=== PATIENT | male | born 1940 | race African-American/Black ===

== ENCOUNTER 2016-07-04 16:26 | Inpatient (IN) | payer MEDICARE ==
[~2016-07-04] VITALS: Ht 162.6 cm; Wt 67.6 kg
[~2016-07-04 16:26] MED LIST: ASPI-110 PO; ATOR10TA15 PO; BRIN1SUS2 EACH EYE; CARV25TA PO; CHOL100025 CHEW; GLIM2TAB PO; HYDR25TA5 PO; LISI-515 PO; POTA-243 PO; PRED1SUS LEFT EYE; TIMO0.5S30 EACH EYE
[2016-07-04 16:59] VITALS: BP 139/78; PULSE 97; RESP 18; TEMP 100.1; O2SAT 96
[2016-07-04 17:08] VITALS: O2SAT 96
--- NOTE | 2016-07-04 17:13 | PD ---
HPI Chief Complaint: General Weakness Time Seen by Provider: 17:08 Travel History International Travel<30 days: No Contact w/Intl Traveler<30days: No Traveled to known affect area: No History of Present Illness HPI Patient comes in complaining of bilateral lower extremity weakness ongoing for 2 years. Patient reports it has been getting worse over the past several days. Patient reports 2 days ago felt his legs gave out on him causing him to fall straight down. He denies hitting his head or loss of consciousness. Patient denies any fevers, abdominal pain, nausea, vomiting, loss of bowel or bladder, numbness, chest pain, shortness of breath, headache, upper extremity weakness, IV drug use, back pain, neck pain, or doing anything for this. Patient denies anything making it better or worse. Patient reports associated intermittent tingling bilateral lower extremities around his knees. Patient has history of CVA, hyperlipidemia, glaucoma, hypertension, and diabetes. PFSH Past Medical History Diabetes: Yes Hypertension: Yes Past Surgical History Eye Surgery: Yes (CATARACT) Social History Alcohol Use: Yes (OCC) Tobacco Use: No Substance Use: No Allergies-Medications (Allergen,Severity, Reaction): Coded Allergies: No Known Allergies (Unverified , 03/03/16) Reported Meds & Prescriptions Reported Meds & Active Scripts Active Reported Vitamin D3 (Cholecalciferol) 1,000 Unit Chew 1,000 Units CHEW DAILY Glimepiride 2 Mg Tab 2 Mg PO DAILY Take with breakfast or first main meal Aspirin 81 (Aspirin) 81 Mg Tabdr 81 Mg PO DAILY Carvedilol 25 Mg Tab 25 Mg PO BID Hydrochlorothiazide 25 Mg Tab 25 Mg PO DAILY Atorvastatin (Atorvastatin Calcium) 10 Mg Tab 10 Mg PO HS Lisinopril 20 Mg Tab 20 Mg PO DAILY Klor-Con 10 (Potassium Chloride) 10 Meq Tab 10 Meq PO DAILY Pred Forte Opth Drops (Prednisolone Acetate Opth Drops) 1% Susp 1 Drop LEFT EYE DAILY Simbrinza Opth Drops (Brinzolamide-Brimonidine Opth Drops) 1-0.2% Susp 1 Drop EACH EYE BID Timolol Opth Drops 0.5 % Soln 1 Drop EACH EYE BID Review of Systems Except as stated in HPI: all other systems reviewed are Neg Physical Exam Narrative GENERAL: Well-developed, overly nourished, in no acute distress, and non-ill appearing. SKIN: Focused skin assessment warm and dry. Previous surgical scar noted over cervical spine. HEAD: Atraumatic. Normocephalic. EYES: Pupils equal and round. EOMI. No scleral icterus. No injection or drainage. ENT: No nasal bleeding or discharge. Mucous membranes pink and moist. NECK: Trachea midline. Supple. No nuclear rigidity. CARDIOVASCULAR: Regular rate and rhythm. No murmur appreciated. RESPIRATORY: No accessory muscle use. No respiratory distress. Clear to auscultation. Breath sounds equal bilaterally. GASTROINTESTINAL: Abdomen soft, non-tender, nondistended. Hepatic and splenic margins not palpable. Normal bowel sounds 4. No pulsatile mass. MUSCULOSKELETAL: No obvious deformities. No clubbing. No cyanosis. No edema. Full range of motion. Hip: FROM and equal BL with passive and active flexion, extension, Abduction, Adduction, and internal/external rotation. Pulses equal BL distal. Capillary refill less than 2 seconds distal and equal BL. FROM distal and equal BL. Strength distal 5 out of 5 and equal BL. NV intact distal and equal BL. Plantar flexion and dorsal flexion equal BL. Dorsal pulses equal BL. Sensation equal BL 1st web space. NEUROLOGICAL: Awake and alert. No obvious cranial nerve deficits. Motor grossly within normal limits. Normal speech. PSYCHIATRIC: Appropriate mood and affect; insight and judgment normal. Data Data Last Documented VS Vital Signs Date Time Temp Pulse Resp B/P Pulse Ox O2 Delivery O2 Flow Rate FiO2 07/04/16 17:08 96 Room Air 07/04/16 16:59 100.1 97 18 139/78 Orders Complete Blood Count With Diff (07/04/16 17:03) Comprehensive Metabolic Panel (07/04/16 17:03) Prothrombin Time / Inr (Pt) (07/04/16 17:03) Act Partial Throm Time (Ptt) (07/04/16 17:03) Urinalysis - C+S If Indicated (07/04/16 17:03) Iv Access Insert/Monitor (07/04/16 17:03) Ecg Monitoring (07/04/16 17:03) Oximetry (07/04/16 17:03) Sodium Chloride 0.9% Flush (Ns Flush) (07/04/16 17:15) Ct Brain W/O Iv Contrast(Rout) (07/04/16 ) Spine, Lumbar - Ltd (Ap & Lat) (07/04/16 ) Chest, Single Ap (07/04/16 ) Lactic Acid (07/04/16 18:06) Urine Culture (07/04/16 17:22) Blood Culture (07/04/16 18:32) Sodium Chlor 0.9% 1000 Ml Inj (Ns 1000 M (07/04/16 18:32) Ceftriaxone Inj (Rocephin Inj) (07/04/16 18:45) Azithromycin Inj (Zithromax Inj) (07/04/16 18:45) Acetaminophen (Tylenol) (07/04/16 18:45) Admit Order (Ed Use Only) (07/04/16 19:22) Labs Laboratory Tests Test 07/04/16 07/04/16 07/04/16 07/04/16 17:03 17:10 17:22 18:18 Prothrombin Time 11.8 SEC Prothromb Time International 1.1 RATIO Ratio Activated Partial 31.4 SEC Thromboplast Time White Blood Count 18.2 TH/MM3 Red Blood Count 4.46 MIL/MM3 Hemoglobin 12.0 GM/DL Hematocrit 35.0 % Mean Corpuscular Volume 78.5 FL Mean Corpuscular Hemoglobin 27.0 PG Mean Corpuscular Hemoglobin 34.5 % Concent Red Cell Distribution Width 14.7 % Platelet Count 162 TH/MM3 Mean Platelet Volume 9.3 FL Neutrophils (%) (Auto) 82.1 % Lymphocytes (%) (Auto) 9.4 % Monocytes (%) (Auto) 8.1 % Eosinophils (%) (Auto) 0.1 % Basophils (%) (Auto) 0.3 % Neutrophils # (Auto) 15.0 TH/MM3 Lymphocytes # (Auto) 1.7 TH/MM3 Monocytes # (Auto) 1.5 TH/MM3 Eosinophils # (Auto) 0.0 TH/MM3 Basophils # (Auto) 0.0 TH/MM3 CBC Comment DIFF FINAL Differential Comment Sodium Level 138 MEQ/L Potassium Level 3.9 MEQ/L Chloride Level 101 MEQ/L Carbon Dioxide Level 28.3 MEQ/L Anion Gap 9 MEQ/L Blood Urea Nitrogen 16 MG/DL Creatinine 1.20 MG/DL Estimat Glomerular Filtration 71 ML/MIN Rate Random Glucose 124 MG/DL Calcium Level 9.5 MG/DL Total Bilirubin 0.9 MG/DL Aspartate Amino Transf 126 U/L (AST/SGOT) Alanine Aminotransferase 49 U/L (ALT/SGPT) Alkaline Phosphatase 65 U/L Total Protein 7.8 GM/DL Albumin 3.3 GM/DL Urine Color YELLOW Urine Turbidity HAZY Urine pH 6.0 Urine Specific [place] 1.024 Urine Protein 100 mg/dL Urine Glucose (UA) NEG mg/dL Urine Ketones 10 mg/dL Urine Occult Blood MOD Urine Nitrite NEG Urine Bilirubin NEG Urine Urobilinogen LESS THAN 2.0 MG/DL Urine Leukocyte Esterase LARGE Urine RBC 10 /hpf Urine WBC /hpf Urine WBC Clumps FEW Urine Squamous Epithelial <1 /hpf Cells Urine Bacteria RARE /hpf Urine Hyaline Casts 2 /lpf Urine Mucus FEW /lpf Microscopic Urinalysis Comment CULTURE INDICATED Lactic Acid Level 1.7 mmol/L MDM Medical Decision Making Medical Screen Exam Complete: Yes Emergency Medical Condition: Yes Interpretation(s) Lumbar spine x-ray shows: Degenerative changes. No fracture or subluxation of the lumbar spine. Head CT read by the radiologist shows: No acute intracranial abnormality demonstrated. Old white matter changes and an old right basal ganglia lacunar infarct again seen. Chest x-ray read by radiologist shows: Left base pneumonia. Differential Diagnosis Electrolyte abnormality, UTI, pneumonia, CVA, anemia, other Narrative Course Patient seen and examined. Initial laboratory and radiological studies were obtained and reviewed. Patient was given IV fluids, IV Rocephin, IV Zithromax, and Tylenol. Discussed patient with Dr. Sanchez, who is in agreement with plan of care and disposition. Discussed all findings and plan of care with patient, who is agreeable for admission. All questions were answered. Patient remained stable throughout ED course. Sepsis Criteria SIRS Criteria (2 or more): Heart rate over 90, WBC > 88653, < 4000 or > 10% bands Sepsis Criteria (SIRS+source): Infect source susp/known Physician Communication Physician Communication [address] Underwood, who is agreeable to admit the patient. Diagnosis Primary Impression: Sepsis Qualified Code: A41.9 - Sepsis, due to unspecified organism Additional Impressions: Pneumonia Qualified Code: J18.1 - Pneumonia of left lower lobe due to infectious organism UTI (urinary tract infection) Qualified Code: N39.0 - Urinary tract infection with hematuria, site unspecified Admitting Information Admitting Physician Requests: Admit Condition: Stable Nestor Baer July 04, 2016 17:13
[2016-07-04] MEDS ORDERED: SODIUM CHLORIDE 0.9% FLUSH 10 ML FLUSH IV FLUSH PRN ×2 (17:15→20:15)
[2016-07-04 17:32] LABS: BASOPHIL % 0.3 % (0.0-2.0); EOSINOPHIL % 0.1 % (0.0-4.0); HEMO FLAGS DIFF FINAL; LYMPH % 9.4 % (9.0-44.0); LYMPHOCYTE # 1.7 TH/MM3 (1.0-4.8); MEAN CELL VOLUME 78.5 FL (80.0-100.0); MEAN CORPUSCULAR HGB CONC 34.5 % (32.0-36.0); MONO % 8.1 % (0.0-8.0); NEUT % 82.1 % (16.0-70.0); PLATELET COUNT 162 TH/MM3 (150-450); RED BLOOD COUNT 4.46 MIL/MM3 (4.50-5.90); RED CELL DISTRIBUTION WIDTH 14.7 % (11.6-17.2); WHITE BLOOD COUNT 18.2 TH/MM3 (4.0-11.0)
[2016-07-04 17:39] LABS: APTT (PATIENT) 31.4 SEC (24.3-30.1); INTERNATIONAL NORMALIZED RATIO 1.1 RATIO; PROTHROMBIN TIME - PATIENT 11.8 SEC (9.8-11.6)
--- NOTE | 2016-07-04 17:53 | RADRPT ---
EXAM DATE/TIME: 07/04/2016 17:28 [facility] COMPARISON: No previous studies available for comparison. INDICATIONS : Back pain, fell MEDICAL HISTORY : None. SURGICAL HISTORY : None. ENCOUNTER: Initial ACUITY: 1 day PAIN SCORE: 8/10 LOCATION: Lumbar spine FINDINGS: No fracture or subluxation demonstrated of the lumbar spine. Vertebral bodies have normal height. There is lateral osseous ridging at essentially all levels. There is also some anterior osseous ridgi ng, especially L1/L2, L4/L5 and L5/S1. Minimal disc space narrowing. Mild to moderate bilateral facet osteoarthritis seen at L4/L5 and L5/S1. CONCLUSION: Degenerative changes as above. No fracture or subluxation of the lumbar spine. Joe Cerna MD on July 04, 2016 at 17:50 Board Certified Radiologist. This report was verified electronically.
[2016-07-04 17:57] LABS: ALKALINE PHOSPHATASE 65 U/L (45-117); ALT (GPT) 49 U/L (12-78); ANION GAP 9 MEQ/L (5-15); AST (GOT) 126 U/L (15-37); BICARBONATE 28.3 MEQ/L (21.0-32.0); BLOOD UREA NITROGEN 16 MG/DL (7-18); CHLORIDE 101 MEQ/L (98-107); GLOMERULAR FILTRATION RATE 71 ML/MIN (>89); SODIUM (NA) 138 MEQ/L (136-145); TOTAL BILIRUBIN ADULT 0.9 MG/DL (0.2-1.0)
[2016-07-04 18:03] LABS: POTASSIUM 3.9 MEQ/L (3.5-5.1)
--- NOTE | 2016-07-04 18:12 | RADRPT ---
EXAM DATE/TIME: 07/04/2016 17:57 [facility] COMPARISON: CT BRAIN W/O CONTRAST, May 22, 2014, 10:58. INDICATIONS : Generalized weakness. RADIATION DOSE: 56.35 CTDIvol (mGy) MEDICAL HISTORY : Hypertension. SURGICAL HISTORY : spinal fusion. ENCOUNTER: Initial ACUITY: 1 day PAIN SCALE: 0/10 LOCATION: cranial TECHNIQUE: Multiple contiguous axial images were obtained of the head. Using automated exposure control and adj ustment of the mA and/or kV according to patient size, radiation dose was kept as low as reasonably a chievable to obtain optimal diagnostic quality images. FINDINGS: CEREBRUM: The ventricles are normal for age. No evidence of midline shift, mass lesion, hemorrhage or acute in farction. No extra-axial fluid collections are seen. There is chronic low-attenuation in the periven tricular white matter. Old right basal ganglia lacunar infarct again seen. POSTERIOR FOSSA: The cerebellum and brainstem are intact. The 4th ventricle is midline. The cerebellopontine angle i s unremarkable. EXTRACRANIAL: The visualized portion of the orbits is intact. SKULL: The calvaria is intact. No evidence of skull fracture. CONCLUSION: No acute intracranial abnormality demonstrated. Old white matter changes and an old right basal gangl ia lacunar infarct again seen. Joe Cerna MD on July 04, 2016 at 18:09 Board Certified Radiologist. This report was verified electronically.
[2016-07-04 18:27] LABS: BACTERIA, URINE RARE /hpf; BLOOD, URINE MOD (NEG); COMMENT (UR) CULTURE INDICATED; CULTURE IF INDICATED CULTURE INDICATED; GLUCOSE,URINE NEG (NEG); HYALINE CAST, URINE 2 /lpf (RARE); KETONE, URINE 10 mg/dL (NEG); MUCUS URINE FEW /lpf (OCC); NITRITE,URINE NEG (NEG); SQUAMOUS EPITHELIAL CELL URINE <1 /hpf (0-5); URINE COLOR YELLOW (YELLW/STRAW)
--- NOTE | 2016-07-04 18:27 | RADRPT ---
EXAM DATE/TIME: 07/04/2016 18:08 [facility] COMPARISON: CHEST SINGLE AP, May 22, 2014, 10:43. INDICATIONS : Fever MEDICAL HISTORY : None. SURGICAL HISTORY : None. ENCOUNTER: Initial ACUITY: 1 day PAIN SCORE: 0/10 LOCATION: Bilateral chest FINDINGS: Left hemidiaphragm is partially obscured compatible with a left base infiltrate. I believe it is main ly in the lower lobe. Right lung is clear. No pleural effusion or pneumothorax seen on either side. Heart size stable, upper limits of normal. Thoracic aorta and mediastinal vessels are mildly tortuous , unchanged. CONCLUSION: Left base pneumonia. Joe Cerna MD on July 04, 2016 at 18:25 Board Certified Radiologist. This report was verified electronically.
[2016-07-04] MEDS ORDERED: SODIUM CHLOR 0.9% 1000 ML INJ 1,000 ML IV SCH (18:32)
[2016-07-04] MEDS ORDERED: ACETAMINOPHEN 500 MG CPLT PO ONE (18:45)
[2016-07-04] MEDS ORDERED: AZITHROMYCIN INJ 500 MG in SODIUM CHLOR 0.9% 250 ML INJ 250 ML IV ONE (18:45)
[2016-07-04] MEDS ORDERED: cefTRIAXone INJ 1,000 MG in SODIUM CHLORIDE 0.9% INJ 100 ML IV ONE (18:45)
[2016-07-04 19:00] VITALS: BP 133/66; PULSE 75; RESP 17; O2SAT 98
--- NOTE | 2016-07-04 20:09 | HHI.HP ---
HPI Service [facility] Primary Care Physician Ai Moore MD Admission Diagnosis sepsis, pneumonia, UTI Diagnoses: (1) Sepsis (2) PNA (pneumonia) Diagnosis: Principal (3) UTI (urinary tract infection) Diagnosis: Principal (4) Generalized weakness Diagnosis: Principal (5) DM (diabetes mellitus) Diagnosis: Principal Travel History International Travel<30 Days: No Contact w/Intl Traveler <30 Da: No Traveled to Known Affected Are: No History of Present Illness This is a 76-year-old male with a PMH of HTN, Hyperlipidemia, CVA and DM who presented to the ER with complaints of generalized weakness x2 days. Reports fall 2 days ago due to weakness but no LOC or head trauma. Denies fever, chills , nausea, vomiting, chest pain or SOB. On arrival, BP 139/78, HR 97, O2 sat 96 % on RA, Temp 100.1. WBC 18.2. Chemistry at baseline. GFR 71. Lactic Acid 1.7. UA positive for UTI. CT Head with no acute findings, old right basal ganglia lacunar infarct. CXR with left base pneumonia. S/p Blood Cultures, Rocephin/Zithro in ER. Review of Systems Except as stated in HPI: all other systems reviewed are Neg ROS: 14 point review of systems otherwise negative. Past Family Social History Past Medical History PMH: HTN, Hyperlipidemia, CVA and DM Past Surgical History PAST SURGICAL HISTORY: Cataract Surgery Allergies: Coded Allergies: No Known Allergies (Unverified , 03/03/16) Family History PAST FAMILY HISTORY: Reviewed. No h/o DM or CAD Social History PAST SOCIAL HISTORY: Occasional alcohol. Negative for tobacco or drugs. Physical Exam Vital Signs Vital Signs Date Time Temp Pulse Resp B/P Pulse Ox O2 Delivery O2 Flow Rate FiO2 07/04/16 17:08 96 Room Air 07/04/16 17:06 96 Room Air 07/04/16 16:59 100.1 97 18 139/78 96 Physical Exam PE: GENERAL: Elderly male in no acute distress. HEENT: PERRLA, EOMI. No scleral icterus or conjunctival pallor. No lid lag or facial droop. CARDIOVASCULAR: Regular rate and rhythm. No obvious murmurs to auscultation. No chest tenderness to palpation. RESPIRATORY: No obvious rhonchi or wheezing. Clear to auscultation. Breath sounds equal bilaterally. GASTROINTESTINAL: Abdomen soft, non-tender, nondistended. BS normal. MUSCULOSKELETAL: Extremities without clubbing, cyanosis, or edema. No obvious deformities. NEUROLOGICAL: Awake, alert and oriented x4. No focal neurologic deficits. Moving both upper and lower extremities spontaneously. Laboratory Laboratory Tests Test 07/04/16 07/04/16 07/04/16 07/04/16 17:03 17:10 17:22 18:18 Prothrombin Time 11.8 Prothromb Time International 1.1 Ratio Activated Partial 31.4 Thromboplast Time White Blood Count 18.2 Red Blood Count 4.46 Hemoglobin 12.0 Hematocrit 35.0 Mean Corpuscular Volume 78.5 Mean Corpuscular Hemoglobin 27.0 Mean Corpuscular Hemoglobin 34.5 Concent Red Cell Distribution Width 14.7 Platelet Count 162 Mean Platelet Volume 9.3 Neutrophils (%) (Auto) 82.1 Lymphocytes (%) (Auto) 9.4 Monocytes (%) (Auto) 8.1 Eosinophils (%) (Auto) 0.1 Basophils (%) (Auto) 0.3 Neutrophils # (Auto) 15.0 Lymphocytes # (Auto) 1.7 Monocytes # (Auto) 1.5 Eosinophils # (Auto) 0.0 Basophils # (Auto) 0.0 CBC Comment DIFF FINAL Differential Comment Sodium Level 138 Potassium Level 3.9 Chloride Level 101 Carbon Dioxide Level 28.3 Anion Gap 9 Blood Urea Nitrogen 16 Creatinine 1.20 Estimat Glomerular Filtration 71 Rate Random Glucose 124 Calcium Level 9.5 Total Bilirubin 0.9 Aspartate Amino Transf 126 (AST/SGOT) Alanine Aminotransferase 49 (ALT/SGPT) Alkaline Phosphatase 65 Total Protein 7.8 Albumin 3.3 Urine Color YELLOW Urine Turbidity HAZY Urine pH 6.0 Urine Specific [place] 1.024 Urine Protein 100 Urine Glucose (UA) NEG Urine Ketones 10 Urine Occult Blood MOD Urine Nitrite NEG Urine Bilirubin NEG Urine Urobilinogen LESS THAN 2.0 Urine Leukocyte Esterase LARGE Urine RBC 10 Urine WBC Urine WBC Clumps FEW Urine Squamous Epithelial <1 Cells Urine Bacteria RARE Urine Hyaline Casts 2 Urine Mucus FEW Microscopic Urinalysis Comment CULTURE INDICATED Lactic Acid Level 1.7 Date/Time Procedure Status Source Growth 07/04/16 18:30 Aerobic Blood Culture Received Blood Peripheral Pending 07/04/16 18:30 Anaerobic Blood Culture Received Blood Peripheral Pending 07/04/16 17:22 Urine Culture Received Urine Clean Catch Pending Result Diagram: 07/04/16 1710 07/04/16 1710 Assessment and Plan Problem List: (1) Sepsis ICD Code: A41.9 Status: Acute (2) PNA (pneumonia) ICD Code: J18.9 Status: Acute (3) UTI (urinary tract infection) ICD Code: N39.0 Status: Acute (4) Generalized weakness ICD Code: R53.1 Status: Acute (5) DM (diabetes mellitus) ICD Code: E11.9 Status: Acute Assessment and Plan A/P: 1. Sepsis: Temp 100.1, WBC 18, Source-UTI/PNA. S/p Blood/Urine cultures, Rocephin/Zithro in ER. Follow up cultures, continue IV Abx. IVF for hydration. 2. PNA: CXR w/ LLL PNA, images reviewed by me. Denies symptoms at this time. Continue w/ IV Abx as above, DuoNeb prn, Mucinex bid. 3. UTI: U/a w/ UTI. IV Abx, IVF for hydration. 4. Generalized Weakness: Acute on Chronic. Multifactorial-combination of physical deconditioning and acute infection/sepsis. Consult PT for eval/tx. 5. DM: Sliding scale w/ Accu-Cheks, check Hgb A1c. 6. DVT Prophylaxis: SCD/Teds. 7. Social work for d/c planning as needed. 8. Case discussed w/ ER physician at length. Physician Certification 2 Midnight Certification Type: Admission for Inpatient Services Order for Inpatient Services The services are ordered in accordance with Medicare regulations or non- Medicare payer requirements, as applicable. In the case of services not specified as inpatient-only, they are appropriately provided as inpatient services in accordance with the 2-midnight benchmark. Estimated LOS (days): 2 days is the estimated time the patient will need to remain in the hospital, assuming treatment plan goals are met and no additional complications. Post-Hospital Plan: Not yet determined Problem Qualifiers (1) Sepsis: Qualified Code: A41.9 - Sepsis, due to unspecified organism (2) UTI (urinary tract infection): Qualified Code: N39.0 - Urinary tract infection with hematuria, site unspecified Pat Underwood MD July 04, 2016 20:09
[2016-07-04] MEDS ORDERED: ONDANSETRON HCL 4 MG/2 ML VIAL IVP PRN (20:15)
[2016-07-04] MEDS ORDERED: GLUCAGON 1 MG/ML VIAL OTHER PRN (20:15)
[2016-07-04] MEDS ORDERED: DEXTROSE 50% IN WATER 50 ML VIAL(D50) IV PRN (20:15)
[2016-07-04] MEDS ORDERED: ACETAMINOPHEN/HYDROcodone 325 MG/5 MG TAB PO PRN (20:15)
[2016-07-04] MEDS ORDERED: RESP: ALBUTEROL 2.5 MG/IPRATROPIUM 0.5 MG NEB (PRN) NEB (20:15)
[2016-07-04] MEDS ORDERED: BISACODYL 10 MG SUPP RECTAL PRN (20:15)
[2016-07-04] MEDS ORDERED: MORPHINE SULFATE 4 MG/ML INJ IV PRN (20:15)
[2016-07-04 21:00] VITALS: BP 129/61; PULSE 81; RESP 16; O2SAT 97
[2016-07-04] MEDS ORDERED: [UNRECOGNIZED DRUG - OTHER] EACH EYE SCH (21:00)
[2016-07-04] MEDS: SODIUM CHLORIDE 0.9% FLUSH 10 ML FLUSH IV FLUSH SCH (21:00)
[2016-07-04] MEDS: INSULIN ASPART SUPPLEMENTAL SCALE SQ SCH (21:00)
[2016-07-04] MEDS: SODIUM CHLOR 0.9% 1000 ML INJ 1,000 ML IV SCH (21:17)
[2016-07-04] MEDS: ATORVASTATIN 10 MG TAB PO SCH (21:19)
[2016-07-04] MEDS: CARVEDILOL 12.5 MG TAB PO SCH (21:19)
[2016-07-04 21:34] VITALS: TEMP 98.9
[2016-07-04] MEDS: TIMOLOL MALEATE 0.5% OPHT SOLN 5 ML BTL EACH EYE SCH (22:06)
[2016-07-04 23:00] VITALS: PULSE 95
[2016-07-04] MEDS: ACETAMINOPHEN 325 MG TAB PO PRN (23:13)
[2016-07-05] VITALS (9 sets, daily range): BP systolic 112–177; BP diastolic 56–86; PULSE 69–101; RESP 16–18; TEMP 97.8–102.1; O2SAT 92–98
[2016-07-05] MEDS: ACETAMINOPHEN 325 MG TAB PO PRN ×2 (05:53→16:11)
[2016-07-05] MEDS: SODIUM CHLOR 0.9% 1000 ML INJ 1,000 ML IV SCH ×2 (05:53→16:14)
[2016-07-05] MEDS: INSULIN ASPART SUPPLEMENTAL SCALE SQ SCH ×4 (05:54→20:46)
[2016-07-05 07:54] LABS: AUTOMATED NEUTROPHIL # 11.1 TH/MM3 (1.8-7.7); BASOPHIL % 0.2 % (0.0-2.0); EOSINOPHIL % 0.2 % (0.0-4.0); HEMATOCRIT 31.5 % (39.0-51.0); HEMO FLAGS DIFF FINAL; LYMPHOCYTE # 1.3 TH/MM3 (1.0-4.8); MEAN CELL VOLUME 78.7 FL (80.0-100.0); MEAN CORPUSCULAR HEMOGLOBIN 26.9 PG (27.0-34.0); MEAN CORPUSCULAR HGB CONC 34.3 % (32.0-36.0); MONO % 6.9 % (0.0-8.0); NEUT % 82.7 % (16.0-70.0); PLATELET COUNT 143 TH/MM3 (150-450); RED BLOOD COUNT 4.01 MIL/MM3 (4.50-5.90); RED CELL DISTRIBUTION WIDTH 14.2 % (11.6-17.2); WHITE BLOOD COUNT 13.4 TH/MM3 (4.0-11.0)
[2016-07-05 08:13] LABS: ALT (GPT) 36 U/L (12-78); ANION GAP 8 MEQ/L (5-15); AST (GOT) 77 U/L (15-37); BICARBONATE 26.6 MEQ/L (21.0-32.0); BLOOD UREA NITROGEN 16 MG/DL (7-18); CHLORIDE 105 MEQ/L (98-107); GLOMERULAR FILTRATION RATE 94 ML/MIN (>89); POTASSIUM 3.3 MEQ/L (3.5-5.1); SODIUM (NA) 140 MEQ/L (136-145)
[2016-07-05] MEDS: TIMOLOL MALEATE 0.5% OPHT SOLN 5 ML BTL EACH EYE SCH ×2 (08:18→20:46)
[2016-07-05] MEDS: guaiFENesin E.R. 600 MG TAB PO SCH ×2 (08:18→20:38)
[2016-07-05] MEDS: CARVEDILOL 12.5 MG TAB PO SCH ×2 (08:18→20:38)
[2016-07-05] MEDS: ASPIRIN EC 81 MG TABEC PO SCH (08:18)
[2016-07-05] MEDS: prednisoLONE ACETATE 1% OPHT SUSP 5 ML BTL LEFT EYE SCH (08:18)
[2016-07-05] MEDS: SODIUM CHLORIDE 0.9% FLUSH 10 ML FLUSH IV FLUSH SCH ×2 (08:19→20:43)
[2016-07-05 08:22] LABS: ALKALINE PHOSPHATASE 55 U/L (45-117); TOTAL BILIRUBIN ADULT 0.7 MG/DL (0.2-1.0)
[2016-07-05] MEDS ORDERED: PNEUMOCOCCAL POLYVALENT INJ 25 MCG/0.5 ML SYR IM ONE (10:00)
[2016-07-05] MEDS ORDERED: INFLUENZA VIRUS VACCINE (QUADRIVALENT) 0.5 ML SYR IM ONE (10:00)
[2016-07-05] MEDS ORDERED: POTASSIUM CHLORIDE 10 MEQ CONTROLLED RELEASE TAB PO ONE (10:30)
--- NOTE | 2016-07-05 10:33 | HHI.PR ---
Subjective Remarks in no acute distress. had a fever earlier today. denies pain or productive cough. Objective Vitals Vital Signs Date Time Temp Pulse Resp B/P Pulse Ox O2 Delivery O2 Flow Rate FiO2 07/05/16 08:00 98.2 77 18 121/65 97 07/05/16 04:00 100.4 84 17 112/56 96 07/05/16 00:00 100.7 101 18 126/70 92 07/04/16 23:00 95 07/04/16 21:34 98.9 07/04/16 21:00 81 16 129/61 97 07/04/16 19:00 75 17 133/66 98 07/04/16 17:08 96 Room Air 07/04/16 17:06 96 Room Air 07/04/16 16:59 100.1 97 18 139/78 96 I/O 07/04/16 07/04/16 07/04/16 07/05/16 07/05/16 07/05/16 07:00 15:00 23:00 07:00 15:00 23:00 Intake Total 1269 ml Output Total 650 ml Balance 619 ml Intake Oral 240 ml IV Total 1029 ml Output Urine Total 650 ml Result Diagram: 07/05/16 0650 07/05/16 0650 Imaging Last Impressions Lumbar Spine X-Ray 07/04/16 0000 Signed Impressions: Service Date/Time: Monday, July 04, 2016 17:28 - CONCLUSION: Degenerative changes as above. No fracture or subluxation of the lumbar spine. Joe Cerna MD Head CT 07/04/16 0000 Signed Impressions: Service Date/Time: Monday, July 04, 2016 17:57 - CONCLUSION: No acute intracranial abnormality demonstrated. Old white matter changes and an old right basal ganglia lacunar infarct again seen. Joe Cerna MD Chest X-Ray 07/04/16 0000 Signed Impressions: Service Date/Time: Monday, July 04, 2016 18:08 - CONCLUSION: Left base pneumonia. Joe Cerna MD Objective Remarks GENERAL: This is a well-nourished, well-developed patient, in no apparent distress. CARDIOVASCULAR: Regular rate and regular rhythm without murmurs, gallops, or rubs. RESPIRATORY: Clear to auscultation. Breath sounds equal bilaterally. No wheezes , rales, or rhonchi. GASTROINTESTINAL: Abdomen soft, non-tender, nondistended. Normal, active bowel sounds MUSCULOSKELETAL: Extremities without clubbing, cyanosis, or edema. NEURO: Alert & Oriented x4 to person, place, time, situation. Moves all ext x4 Procedures none Medications and IVs Current Medications Sodium Chloride 2 ml 2 ml UNSCH PRN IV FLUSH FLUSH AFTER USING IV ACCESS; Start 07/04/16 at 17:15; Stop 07/04/16 at 20:27; Status DC Sodium Chloride 1,000 ml @ 100 mls/hr Q10H IV Last administered on 07/04/16 18:32; Start 07/04/16 at 18:32; Stop 07/04/16 at 20:52; Status DC Ceftriaxone Sodium 1000 mg/ Sodium Chloride 100 ml @ 200 mls/hr ONCE ONCE IV Last administered on 07/04/16 18:45; Start 07/04/16 at 18:45; Stop 07/04/16 at 19:14; Status DC Azithromycin/ Sodium Chloride (Zithromax Inj/ NS 250 ml Inj) 250 ml @ 250 mls/ hr ONCE ONCE IV Last administered on 07/04/16 20:05; Start 07/04/16 at 18:45 ; Stop 07/04/16 at 19:44; Status DC Acetaminophen (Tylenol) 500 mg ONCE ONCE PO Last administered on 07/04/16 18: 45; Start 07/04/16 at 18:45; Stop 07/04/16 at 18:46; Status DC Dextrose (D50w (Vial) Inj) 50 ml UNSCH PRN IV HYPOGLYCEMIA-SEE COMMENTS; Start 07/04/16 at 20:15 Glucagon (Glucagon Inj) 1 mg UNSCH PRN OTHER HYPOGLYCEMIA-SEE COMMENTS; Start 07/04/16 at 20:15 Insulin Aspart 1 1 ACHS SLIDING SCALE SQ ; Start 07/04/16 at 21:00 Ceftriaxone Sodium 1000 mg/ Sodium Chloride 100 ml @ 200 mls/hr Q24H IV ; Start 07/05/16 at 21:00 Azithromycin/ Sodium Chloride (Zithromax Inj/ NS 250 ml Inj) 250 ml @ 250 mls/ hr Q24H IV ; Start 07/05/16 at 21:00 Albuterol/ Ipratropium 1 ampule 1 ampule Q4HR NEB PRN NEB SOB/WHEEZING; Start 07/04/16 at 20:15 Sodium Chloride (NS 1000 ml Inj) 1,000 ml @ 100 mls/hr Q10H IV Last administered on 07/05/16 05:53; Start 07/04/16 at 21:00 Sodium Chloride (NS Flush) 2 ml UNSCH PRN IV FLUSH FLUSH AFTER USING IV ACCESS ; Start 07/04/16 at 20:15 Sodium Chloride (NS Flush) 2 ml BID IV FLUSH ; Start 07/04/16 at 21:00 Ondansetron HCl (Zofran Inj) 4 mg Q6H PRN IVP NAUSEA OR VOMITING; Start at 20:15 Bisacodyl (Dulcolax Supp) 10 mg DAILY PRN RECTAL CONSTIPATION; Start 07/04/16 at 20:15 Acetaminophen (Tylenol) 650 mg Q6H PRN PO FEVER/PAIN SCALE 1 TO 2 Last administered on 07/05/16 05:53; Start 07/04/16 at 20:15 Acetaminophen/ Hydrocodone Bitart ([place] 5-325 Mg) 1 tab Q4H PRN PO PAIN SCALE 3 TO 5; Start 07/04/16 at 20:15 Morphine Sulfate (Morphine Inj) 2 mg Q3H PRN IV Pain 6-10; Start 07/04/16 at 20 :15 Atorvastatin Calcium (Lipitor) 10 mg HS PO Last administered on 07/04/16 21:19 ; Start 07/04/16 at 21:00 Carvedilol (Coreg) 25 mg BID PO Last administered on 07/05/16 08:18; Start at 21:00 Prednisolone Acetate (Pred Forte 1% Opth Susp) 1 drop DAILY LEFT EYE Last administered on 07/05/16 08:18; Start 07/05/16 at 09:00 Timolol Maleate (Timoptic 0.5% Opth Soln) 1 drop BID EACH EYE Last administered on 07/05/16 08:18; Start 07/04/16 at 21:00 Aspirin (Ecotrin Ec) 81 mg DAILY PO Last administered on 07/05/16 08:18; Start 07/05/16 at 09:00 Patient Own Medication PT OWN MED: SIMBRINZA (BRINZOLAM... BID EACH EYE ; Start 5/21/17 at 21:00; Status Hold Pneumococcal Polyvalent Vaccine (Pneumovax-23 Inj) 25 mcg ONCE ONCE IM ; Start 07/05/16 at 10:00; Stop 07/05/16 at 10:01; Status DC Influenza Virus Vaccine (Flu (Quadrivalent) Vaccine Inj) 0.5 ml ONCE ONCE IM ; Start 07/05/16 at 10:00; Stop 07/05/16 at 10:01; Status DC Guaifenesin (Mucinex Er) 600 mg BID PO Last administered on 07/05/16t 08:18; Start 07/05/16 at 09:00 A/P Assessment and Plan A/P 1. Sepsis; Source-UTI/PNA. follow the Blood/Urine cultures, continue IV antibiotics. 2. Generalized Weakness: Acute on Chronic. Multifactorial-combination of physical deconditioning and acute infection/sepsis. Consulted PT for eval/tx. 3. DM: Sliding scale w/ Accu-Cheks. 4.hypertension; controlled- continue coreg- will monitor and adjust the regimen as needed. 5.mild hypokalemia; will replace. 6. DVT Prophylaxis: SCD/Teds. Lien Francis MD July 05, 2016 10:33
[2016-07-05] MEDS ORDERED: IBUPROFEN 200 MG TAB PO PRN (17:15)
[2016-07-05] MEDS: ATORVASTATIN 10 MG TAB PO SCH (20:38)
[2016-07-05] MEDS: cefTRIAXone INJ 1,000 MG in SODIUM CHLORIDE 0.9% INJ 100 ML IV SCH (20:39)
[2016-07-05] MEDS: AZITHROMYCIN INJ 500 MG in SODIUM CHLOR 0.9% 250 ML INJ 250 ML IV SCH (21:40)
[2016-07-06] VITALS (8 sets, daily range): BP systolic 132–200; BP diastolic 62–93; PULSE 69–112; RESP 16–20; TEMP 96.6–100.1; O2SAT 93–98
[2016-07-06] MEDS: SODIUM CHLOR 0.9% 1000 ML INJ 1,000 ML IV SCH ×3 (01:26→23:00)
[2016-07-06] MEDS: INSULIN ASPART SUPPLEMENTAL SCALE SQ SCH ×4 (05:49→21:00)
[2016-07-06] MEDS: CARVEDILOL 12.5 MG TAB PO SCH ×2 (08:12→22:08)
[2016-07-06] MEDS: ASPIRIN EC 81 MG TABEC PO SCH (08:12)
[2016-07-06] MEDS: guaiFENesin E.R. 600 MG TAB PO SCH ×2 (08:12→22:08)
[2016-07-06] MEDS: prednisoLONE ACETATE 1% OPHT SUSP 5 ML BTL LEFT EYE SCH (08:15)
[2016-07-06] MEDS: TIMOLOL MALEATE 0.5% OPHT SOLN 5 ML BTL EACH EYE SCH ×2 (08:15→22:07)
[2016-07-06] MEDS: SODIUM CHLORIDE 0.9% FLUSH 10 ML FLUSH IV FLUSH SCH ×2 (08:16→22:09)
--- NOTE | 2016-07-06 09:11 | HHI.PR ---
Subjective Remarks feeling better today. no sob.Tmax 102.1. no fever this morning. Objective Vitals Vital Signs Date Time Temp Pulse Resp B/P Pulse Ox O2 Delivery O2 Flow Rate FiO2 07/06/16 08:24 79 07/06/16 08:00 98.2 80 18 183/86 98 07/06/16 04:30 98.8 73 18 157/70 97 07/06/16 00:00 97.3 69 16 132/62 98 07/05/16 21:00 97.8 72 16 126/63 97 07/05/16 20:00 69 07/05/16 17:46 100.4 07/05/16 16:00 102.1 86 18 177/86 98 07/05/16 12:00 99.4 75 17 133/66 96 I/O 07/05/16 07/05/16 07/05/16 07/06/16 07/06/16 07/06/16 07:00 15:00 23:00 07:00 15:00 23:00 Intake Total 1269 ml 480 ml 480 ml 2148 ml Output Total 650 ml 250 ml 375 ml Balance 619 ml 230 ml 480 ml 1773 ml Intake Oral 240 ml 480 ml 480 ml 120 ml IV Total 1029 ml 2028 ml Output Urine Total 650 ml 250 ml 375 ml # Voids 5 3 # Bowel Movements 1 Result Diagram: 07/05/16 0650 07/05/16 0650 Imaging Last Impressions Lumbar Spine X-Ray 07/04/16 0000 Signed Impressions: Service Date/Time: Monday, July 04, 2016 17:28 - CONCLUSION: Degenerative changes as above. No fracture or subluxation of the lumbar spine. Joe Cerna MD Head CT 07/04/16 0000 Signed Impressions: Service Date/Time: Monday, July 04, 2016 17:57 - CONCLUSION: No acute intracranial abnormality demonstrated. Old white matter changes and an old right basal ganglia lacunar infarct again seen. Joe Cerna MD Chest X-Ray 07/04/16 0000 Signed Impressions: Service Date/Time: Monday, July 04, 2016 18:08 - CONCLUSION: Left base pneumonia. Joe Cerna MD Objective Remarks GENERAL: This is a well-nourished, well-developed patient, in no apparent distress. CARDIOVASCULAR: Regular rate and regular rhythm without murmurs, gallops, or rubs. RESPIRATORY: Clear to auscultation. Breath sounds equal bilaterally. No wheezes , rales, or rhonchi. GASTROINTESTINAL: Abdomen soft, non-tender, nondistended. Normal, active bowel sounds MUSCULOSKELETAL: Extremities without clubbing, cyanosis, or edema. NEURO: Alert & Oriented x4 to person, place, time, situation. Moves all ext x4 Procedures none Medications and IVs Current Medications Sodium Chloride 2 ml 2 ml UNSCH PRN IV FLUSH FLUSH AFTER USING IV ACCESS; Start 07/04/16 at 17:15; Stop 07/04/16 at 20:27; Status DC Sodium Chloride 1,000 ml @ 100 mls/hr Q10H IV Last administered on 07/04/16 18:32; Start 07/04/16 at 18:32; Stop 07/04/16 at 20:52; Status DC Ceftriaxone Sodium 1000 mg/ Sodium Chloride 100 ml @ 200 mls/hr ONCE ONCE IV Last administered on 07/04/16 18:45; Start 07/04/16 at 18:45; Stop 07/04/16 at 19:14; Status DC Azithromycin/ Sodium Chloride (Zithromax Inj/ NS 250 ml Inj) 250 ml @ 250 mls/ hr ONCE ONCE IV Last administered on 07/04/16 20:05; Start 07/04/16 at 18:45 ; Stop 07/04/16 at 19:44; Status DC Acetaminophen (Tylenol) 500 mg ONCE ONCE PO Last administered on 07/04/16 18: 45; Start 07/04/16 at 18:45; Stop 07/04/16 at 18:46; Status DC Dextrose (D50w (Vial) Inj) 50 ml UNSCH PRN IV HYPOGLYCEMIA-SEE COMMENTS; Start 07/04/16 at 20:15 Glucagon (Glucagon Inj) 1 mg UNSCH PRN OTHER HYPOGLYCEMIA-SEE COMMENTS; Start 07/04/16 at 20:15 Insulin Aspart 1 1 ACHS SLIDING SCALE SQ Last administered on 07/05/16 16:14 ; Start 07/04/16 at 21:00 Ceftriaxone Sodium 1000 mg/ Sodium Chloride 100 ml @ 200 mls/hr Q24H IV Last administered on 07/05/16 20:39; Start 07/05/16 at 21:00 Azithromycin/ Sodium Chloride (Zithromax Inj/ NS 250 ml Inj) 250 ml @ 250 mls/ hr Q24H IV Last administered on 07/05/16 21:40; Start 07/05/16 at 21:00 Albuterol/ Ipratropium 1 ampule 1 ampule Q4HR NEB PRN NEB SOB/WHEEZING; Start 07/04/16 at 20:15 Sodium Chloride (NS 1000 ml Inj) 1,000 ml @ 100 mls/hr Q10H IV Last administered on 07/06/16 01:26; Start 07/04/16 at 21:00 Sodium Chloride (NS Flush) 2 ml UNSCH PRN IV FLUSH FLUSH AFTER USING IV ACCESS ; Start 07/04/16 at 20:15 Sodium Chloride (NS Flush) 2 ml BID IV FLUSH Last administered on 07/06/16 08: 16; Start 07/04/16 at 21:00 Ondansetron HCl (Zofran Inj) 4 mg Q6H PRN IVP NAUSEA OR VOMITING; Start at 20:15 Bisacodyl (Dulcolax Supp) 10 mg DAILY PRN RECTAL CONSTIPATION; Start 07/04/16 at 20:15 Acetaminophen (Tylenol) 650 mg Q6H PRN PO FEVER/PAIN SCALE 1 TO 2 Last administered on 07/05/16 16:11; Start 07/04/16 at 20:15 Acetaminophen/ Hydrocodone Bitart ([place] 5-325 Mg) 1 tab Q4H PRN PO PAIN SCALE 3 TO 5; Start 07/04/16 at 20:15 Morphine Sulfate (Morphine Inj) 2 mg Q3H PRN IV Pain 6-10; Start 07/04/16 at 20 :15 Atorvastatin Calcium (Lipitor) 10 mg HS PO Last administered on 07/05/16 20:38 ; Start 07/04/16 at 21:00 Carvedilol (Coreg) 25 mg BID PO Last administered on 07/06/16 08:12; Start at 21:00 Prednisolone Acetate (Pred Forte 1% Opt Susp) 1 drop DAILY LEFT EYE Last administered on 07/06/16 08:15; Start 07/05/16 at 09:00 Timolol Maleate (Timoptic 0.5% Opt Soln) 1 drop BID EACH EYE Last administered on 07/06/16 08:15; Start 07/04/16 at 21:00 Aspirin (Ecotrin Ec) 81 mg DAILY PO Last administered on 07/06/16 08:12; Start 07/05/16 at 09:00 Patient Own Medication PT OWN MED: SIMBRINZA (BRINZOLAM... BID EACH EYE ; Start 07/04/16 at 21:00; Status Hold Pneumococcal Polyvalent Vaccine (Pneumovax-23 Inj) 25 mcg ONCE ONCE IM Last administered on 07/05/16 13:22; Start 07/05/16 at 10:00; Stop 07/05/16 at 10:01 ; Status DC Influenza Virus Vaccine (Flu (Quadrivalent) Vaccine Inj) 0.5 ml ONCE ONCE IM Last administered on 07/05/16 13:23; Start 07/05/16 at 10:00; Stop 07/05/16 at 10:01; Status DC Guaifenesin (Mucinex Er) 600 mg BID PO Last administered on 07/06/16 08:12; Start 07/05/16 at 09:00 Potassium Chloride (KCl) 30 meq ONCE ONCE PO Last administered on 07/05/16 11 :09; Start 07/05/16 at 10:30; Stop 07/05/16 at 10:42; Status DC Ibuprofen (Advil) 200 mg Q6H PRN PO FEVER >101 Last administered on 07/05/16 17:26; Start 07/05/16 at 17:15 A/P Assessment and Plan A/P 1. Sepsis; Source-UTI/PNA. blood cultures negative so far and UC with gram negative richard- continue antibiotics. 2. Generalized Weakness: Acute on Chronic. Multifactorial-combination of physical deconditioning and acute infection/sepsis. PT evaluation appreciated. 3. DM: Sliding scale w/ Accu-Cheks. 4.hypertension; controlled- continue coreg- will monitor and adjust the regimen as needed. 5.mild hypokalemia; replaced. 6. DVT Prophylaxis: SCD/Teds. Discharge Planning dc home tomorrow if stable with no recurrent fever. Lien Francis MD July 06, 2016 09:11
[2016-07-06 09:22] LABS: AUTOMATED NEUTROPHIL # 7.3 TH/MM3 (1.8-7.7); BASOPHIL % 0.2 % (0.0-2.0); EOSINOPHIL # 0.1 TH/MM3 (0-0.4); EOSINOPHIL % 1.6 % (0.0-4.0); HEMATOCRIT 36.6 % (39.0-51.0); LYMPH % 12.3 % (9.0-44.0); LYMPHOCYTE # 1.2 TH/MM3 (1.0-4.8); MEAN CELL VOLUME 79.8 FL (80.0-100.0); MEAN CORPUSCULAR HGB CONC 33.8 % (32.0-36.0); MONO % 9.4 % (0.0-8.0); NEUT % 76.5 % (16.0-70.0); PLATELET COUNT 133 TH/MM3 (150-450); RED BLOOD COUNT 4.59 MIL/MM3 (4.50-5.90); RED CELL DISTRIBUTION WIDTH 14.7 % (11.6-17.2); WHITE BLOOD COUNT 9.5 TH/MM3 (4.0-11.0)
[2016-07-06 09:29] LABS: HEMO FLAGS AUTO DIFF
[2016-07-06 10:35] LABS: BANDS 7 % (0-6); METAMYELOCYTES 1 % (0-1); MYELOCYTES 2 % (0-0); NEUTROPHIL # MANUAL DIFF 7.9 TH/MM3 (1.8-7.7); PLATELET ESTIMATE SMEAR LOW (NORMAL); PLATELET MORPHOLOGY ENLARGED (NORMAL); POLYS (SEG NEUTROPHILS) 73 % (16-70); TOXIC VACUOLATION PRESENT (NONE SEEN); WBC DIFF SAMPLE 100
[2016-07-06 10:36] LABS: SCAN/DIFF FINAL DIFF MANUAL
[2016-07-06] MEDS: ACETAMINOPHEN 325 MG TAB PO PRN (17:25)
[2016-07-06] MEDS: ATORVASTATIN 10 MG TAB PO SCH (22:08)
[2016-07-06] MEDS: cefTRIAXone INJ 1,000 MG in SODIUM CHLORIDE 0.9% INJ 100 ML IV SCH (22:09)
[2016-07-06] MEDS: AZITHROMYCIN INJ 500 MG in SODIUM CHLOR 0.9% 250 ML INJ 250 ML IV SCH (22:09)
[2016-07-07] VITALS (8 sets, daily range): BP systolic 165–185; BP diastolic 69–86; PULSE 72–80; RESP 18; TEMP 98.3–100.5; O2SAT 96–98
[2016-07-07] MEDS: INSULIN ASPART SUPPLEMENTAL SCALE SQ SCH ×4 (05:18→20:44)
--- NOTE | 2016-07-07 08:51 | HHI.PR ---
Subjective Remarks resting comfortably with no distress. still with low grade fever. otherwise no other complaints. Objective Vitals Vital Signs Date Time Temp Pulse Resp B/P Pulse Ox O2 Delivery O2 Flow Rate FiO2 07/07/16 05:30 100.5 80 18 165/79 96 07/07/16 00:00 99.3 75 18 168/79 96 07/06/16 22:09 77 07/06/16 20:20 98.9 75 18 173/81 97 07/06/16 17:00 100.1 112 20 200/93 93 07/06/16 12:00 99.6 80 18 187/91 95 07/06/16 12:00 96.6 73 19 95 07/06/16 12:00 99.6 80 18 187/91 95 I/O 07/06/16 07/06/16 07/06/16 07/07/16 07/07/16 07/07/16 07:00 15:00 23:00 07:00 15:00 23:00 Intake Total 2148 ml 480 ml 480 ml 120 ml Output Total 375 ml 600 ml 950 ml 500 ml Balance 1773 ml -120 ml -470 ml -380 ml Intake Oral 120 ml 480 ml 480 ml 120 ml IV Total 2028 ml Output Urine Total 375 ml 600 ml 950 ml 500 ml # Voids 3 2 6 # Bowel Movements 2 Result Diagram: 07/06/16 0821 07/05/16 0650 Imaging Last Impressions Lumbar Spine X-Ray 07/04/16 0000 Signed Impressions: Service Date/Time: Monday, July 04, 2016 17:28 - CONCLUSION: Degenerative changes as above. No fracture or subluxation of the lumbar spine. Joe Cerna MD Head CT 07/04/16 0000 Signed Impressions: Service Date/Time: Monday, July 04, 2016 17:57 - CONCLUSION: No acute intracranial abnormality demonstrated. Old white matter changes and an old right basal ganglia lacunar infarct again seen. Joe Cerna MD Chest X-Ray 07/04/16 0000 Signed Impressions: Service Date/Time: Monday, July 04, 2016 18:08 - CONCLUSION: Left base pneumonia. Joe Cerna MD Objective Remarks GENERAL: This is a well-nourished, well-developed patient, in no apparent distress. CARDIOVASCULAR: Regular rate and regular rhythm without murmurs, gallops, or rubs. RESPIRATORY: Clear to auscultation. Breath sounds equal bilaterally. No wheezes , rales, or rhonchi. GASTROINTESTINAL: Abdomen soft, non-tender, nondistended. Normal, active bowel sounds MUSCULOSKELETAL: Extremities without clubbing, cyanosis, or edema. NEURO: Alert & Oriented x4 to person, place, time, situation. Moves all ext x4 Procedures none Medications and IVs Current Medications Sodium Chloride 2 ml 2 ml UNSCH PRN IV FLUSH FLUSH AFTER USING IV ACCESS; Start 07/04/16 at 17:15; Stop 07/04/16 at 20:27; Status DC Sodium Chloride 1,000 ml @ 100 mls/hr Q10H IV Last administered on 07/04/16 18:32; Start 07/04/16 at 18:32; Stop 07/04/16 at 20:52; Status DC Ceftriaxone Sodium 1000 mg/ Sodium Chloride 100 ml @ 200 mls/hr ONCE ONCE IV Last administered on 07/04/16 18:45; Start 07/04/16 at 18:45; Stop 07/04/16 at 19:14; Status DC Azithromycin/ Sodium Chloride (Zithromax Inj/ NS 250 ml Inj) 250 ml @ 250 mls/ hr ONCE ONCE IV Last administered on 07/04/16 20:05; Start 07/04/16 at 18:45 ; Stop 07/04/16 at 19:44; Status DC Acetaminophen (Tylenol) 500 mg ONCE ONCE PO Last administered on 07/04/16 18: 45; Start 07/04/16 at 18:45; Stop 07/04/16 at 18:46; Status DC Dextrose (D50w (Vial) Inj) 50 ml UNSCH PRN IV HYPOGLYCEMIA-SEE COMMENTS; Start 07/04/16 at 20:15 Glucagon (Glucagon Inj) 1 mg UNSCH PRN OTHER HYPOGLYCEMIA-SEE COMMENTS; Start 07/04/16 at 20:15 Insulin Aspart 1 1 ACHS SLIDING SCALE SQ Last administered on 07/05/16 16:14 ; Start 07/04/16 at 21:00 Ceftriaxone Sodium 1000 mg/ Sodium Chloride 100 ml @ 200 mls/hr Q24H IV Last administered on 07/06/16 22:09; Start 07/05/16 at 21:00 Azithromycin/ Sodium Chloride (Zithromax Inj/ NS 250 ml Inj) 250 ml @ 250 mls/ hr Q24H IV Last administered on 07/06/16 22:09; Start 07/05/16 at 21:00 Albuterol/ Ipratropium 1 ampule 1 ampule Q4HR NEB PRN NEB SOB/WHEEZING; Start 07/04/16 at 20:15 Sodium Chloride (NS 1000 ml Inj) 1,000 ml @ 100 mls/hr Q10H IV Last administered on 07/06/16 23:00; Start 07/04/16 at 21:00 Sodium Chloride (NS Flush) 2 ml UNSCH PRN IV FLUSH FLUSH AFTER USING IV ACCESS ; Start 07/04/16 at 20:15 Sodium Chloride (NS Flush) 2 ml BID IV FLUSH Last administered on 07/06/16 22: 09; Start 07/04/16 at 21:00 Ondansetron HCl (Zofran Inj) 4 mg Q6H PRN IVP NAUSEA OR VOMITING; Start at 20:15 Bisacodyl (Dulcolax Supp) 10 mg DAILY PRN RECTAL CONSTIPATION; Start 07/04/16 at 20:15 Acetaminophen (Tylenol) 650 mg Q6H PRN PO FEVER/PAIN SCALE 1 TO 2 Last administered on 07/06/16 17:25; Start 07/04/16 at 20:15 Acetaminophen/ Hydrocodone Bitart ([place] 5-325 Mg) 1 tab Q4H PRN PO PAIN SCALE 3 TO 5; Start 07/04/16 at 20:15 Morphine Sulfate (Morphine Inj) 2 mg Q3H PRN IV Pain 6-10; Start 07/04/16 at 20 :15 Atorvastatin Calcium (Lipitor) 10 mg HS PO Last administered on 07/06/16 22:08 ; Start 07/04/16 at 21:00 Carvedilol (Coreg) 25 mg BID PO Last administered on 07/06/16 22:08; Start at 21:00 Prednisolone Acetate (Pred Forte 1% Opt Susp) 1 drop DAILY LEFT EYE Last administered on 07/06/16 08:15; Start 07/05/16 at 09:00 Timolol Maleate (Timoptic 0.5% Opt Soln) 1 drop BID EACH EYE Last administered on 07/06/16 22:07; Start 07/04/16 at 21:00 Aspirin (Ecotrin Ec) 81 mg DAILY PO Last administered on 07/06/16 08:12; Start 07/05/16 at 09:00 Patient Own Medication PT OWN MED: SIMBRINZA (BRINZOLAM... BID EACH EYE ; Start 07/04/16 at 21:00; Status Hold Pneumococcal Polyvalent Vaccine (Pneumovax-23 Inj) 25 mcg ONCE ONCE IM Last administered on 07/05/16 13:22; Start 07/05/16 at 10:00; Stop 07/05/16 at 10:01 ; Status DC Influenza Virus Vaccine (Flu (Quadrivalent) Vaccine Inj) 0.5 ml ONCE ONCE IM Last administered on 07/05/16 13:23; Start 07/05/16 at 10:00; Stop 07/05/16 at 10:01; Status DC Guaifenesin (Mucinex Er) 600 mg BID PO Last administered on 07/06/16 22:08; Start 07/05/16 at 09:00 Potassium Chloride (KCl) 30 meq ONCE ONCE PO Last administered on 07/05/16 11 :09; Start 07/05/16 at 10:30; Stop 07/05/16 at 10:42; Status DC Ibuprofen (Advil) 200 mg Q6H PRN PO FEVER >101 Last administered on 07/05/16 17:26; Start 07/05/16 at 17:15 A/P Assessment and Plan A/P 1. Sepsis; Source-UTI/PNA. blood cultures negative so far and UC with Klebsiella- continue antibiotics. will monitor temps. 2. Generalized Weakness: Multifactorial-combination of physical deconditioning and acute infection/sepsis. PT evaluation appreciated. 3. DM: Sliding scale w/ Accu-Cheks. 4.hypertension; not optimally controlled- continue coreg-will resume lisinopril - will monitor and adjust the regimen as needed. 5.mild hypokalemia; replaced. 6. DVT Prophylaxis: SCD/Teds. Discharge Planning dc home tomorrow if remains fever-free. Lien Francis MD July 07, 2016 08:50
[2016-07-07] MEDS: SODIUM CHLOR 0.9% 1000 ML INJ 1,000 ML IV SCH ×2 (09:48→19:00)
[2016-07-07] MEDS: prednisoLONE ACETATE 1% OPHT SUSP 5 ML BTL LEFT EYE SCH (09:49)
[2016-07-07] MEDS: TIMOLOL MALEATE 0.5% OPHT SOLN 5 ML BTL EACH EYE SCH ×2 (09:49→20:42)
[2016-07-07] MEDS: SODIUM CHLORIDE 0.9% FLUSH 10 ML FLUSH IV FLUSH SCH ×2 (09:49→20:44)
[2016-07-07] MEDS: guaiFENesin E.R. 600 MG TAB PO SCH ×2 (09:50→20:43)
[2016-07-07] MEDS: ASPIRIN EC 81 MG TABEC PO SCH (09:50)
[2016-07-07] MEDS: CARVEDILOL 12.5 MG TAB PO SCH ×2 (09:50→20:44)
[2016-07-07] MEDS: LISINOPRIL 20 MG TAB PO SCH (12:40)
[2016-07-07] MEDS: LEVOFLOXACIN 500 MG TAB PO SCH (17:10)
[2016-07-07] MEDS: ATORVASTATIN 10 MG TAB PO SCH (20:44)
[2016-07-08] VITALS: BP 144/75; PULSE 61; RESP 16; O2SAT 97
[2016-07-08 04:00] VITALS: BP 178/84; PULSE 76; RESP 18; TEMP 97.7; O2SAT 97
[2016-07-08] MEDS: SODIUM CHLOR 0.9% 1000 ML INJ 1,000 ML IV SCH (08:00)
[2016-07-08] MEDS: SODIUM CHLORIDE 0.9% FLUSH 10 ML FLUSH IV FLUSH SCH (08:01)
[2016-07-08] MEDS: TIMOLOL MALEATE 0.5% OPHT SOLN 5 ML BTL EACH EYE SCH (08:01)
[2016-07-08] MEDS: CARVEDILOL 12.5 MG TAB PO SCH (08:02)
[2016-07-08] MEDS: guaiFENesin E.R. 600 MG TAB PO SCH (08:02)
[2016-07-08] MEDS: LISINOPRIL 20 MG TAB PO SCH (08:02)
[2016-07-08] MEDS: prednisoLONE ACETATE 1% OPHT SUSP 5 ML BTL LEFT EYE SCH (08:02)
[2016-07-08] MEDS: ASPIRIN EC 81 MG TABEC PO SCH (08:02)
[2016-07-08 08:37] VITALS: BP 140/66; PULSE 70; RESP 16; TEMP 96.6; O2SAT 97
--- NOTE | 2016-07-08 09:07 | HHI.PR ---
Subjective Remarks Follow-up UTI, pneumonia, sepsis. The patient has no complaints at this time. No chest pain, dyspnea, nausea, vomiting. He wants to go home today. Objective Vitals Vital Signs Date Time Temp Pulse Resp B/P Pulse Ox O2 Delivery O2 Flow Rate FiO2 07/08/16 08:37 96.6 70 16 140/66 97 07/08/16 04:00 97.7 76 18 178/84 97 07/08/16 00:00 61 16 144/75 97 07/07/16 20:30 98.3 78 18 185/84 96 07/07/16 20:08 79 07/07/16 16:45 99.0 74 18 168/86 97 07/07/16 12:59 98.9 74 18 167/78 97 I/O 07/07/16 07/07/16 07/07/16 07/08/16 07/08/16 07/08/16 07:00 15:00 23:00 07:00 15:00 23:00 Intake Total 120 ml 720 ml 480 ml 1276 ml Output Total 500 ml 100 ml 625 ml 150 ml Balance -380 ml 620 ml 480 ml 651 ml -150 ml Intake Oral 120 ml 720 ml 480 ml 1276 ml Output Urine Total 500 ml 100 ml 625 ml 150 ml # Voids 6 2 3 4 Result Diagram: 07/06/16 0821 07/05/16 0650 Imaging Last Impressions Lumbar Spine X-Ray 07/04/16 0000 Signed Impressions: Service Date/Time: Monday, July 04, 2016 17:28 - CONCLUSION: Degenerative changes as above. No fracture or subluxation of the lumbar spine. Joe Cerna MD Head CT 07/04/16 0000 Signed Impressions: Service Date/Time: Monday, July 04, 2016 17:57 - CONCLUSION: No acute intracranial abnormality demonstrated. Old white matter changes and an old right basal ganglia lacunar infarct again seen. Joe Cerna MD Chest X-Ray 07/04/16 0000 Signed Impressions: Service Date/Time: Monday, July 04, 2016 18:08 - CONCLUSION: Left base pneumonia. Joe Cerna MD Objective Remarks General: No acute distress. Sitting up in a chair. Heart: Regular rate and rhythm. No murmur. Lungs: Clear to auscultation bilaterally. No wheezes, rales, or rhonchi. Breathing is nonlabored. Abdomen: Soft, nontender, nondistended. Extremities: No lower extremity edema. Psych: Alert and oriented. Procedures none Urinary Catheter: No Vascular Central Line Catheter: No A/P Problem List: (1) Sepsis ICD Code: A41.9 Status: Resolved (2) PNA (pneumonia) ICD Code: J18.9 Status: Acute (3) UTI (urinary tract infection) ICD Code: N39.0 Status: Acute (4) Generalized weakness ICD Code: R53.1 Status: Acute (5) DM (diabetes mellitus) ICD Code: E11.9 Status: Acute Assessment and Plan 1. Sepsis: Source is UTI, pneumonia. Blood cultures are negative or urine culture growing Klebsiella. Continue Levaquin. Patient afebrile overnight. 2. Pneumonia: Not requiring supplemental oxygen. Continue Levaquin. 3. UTI: Urine culture growing Klebsiella. Continue antibiotics. 4. Generalized weakness: Improved. Likely secondary to physical deconditioning and acute infection. Physical therapy recommends discharge home with no PT. 5. Diabetes mellitus: Monitor Accu-Cheks and cover with sliding scale insulin. 6. Hypertension: Not optimally controlled. Continue Coreg, lisinopril. Blood pressure is a little better this morning. Follow-up as outpatient. 7. Hypokalemia: Recheck labs this morning. 8. DVT prophylaxis: SCDs, CASEY pritchard, ambulation. Discharge Planning Plan for discharge home today pending lab results. Problem Qualifiers (1) Sepsis: Qualified Code: A41.9 - Sepsis, due to unspecified organism (2) UTI (urinary tract infection): Qualified Code: N39.0 - Urinary tract infection with hematuria, site unspecified Eleno Franklin MD July 08, 2016 09:07
[2016-07-08] MEDS ORDERED: LEVO500T8 PO (09:10)
--- NOTE | 2016-07-08 09:10 | HHI.DCPOC ---
Discharge Care Plan Diagnosis: (1) Sepsis (2) PNA (pneumonia) (3) DM (diabetes mellitus) (4) UTI (urinary tract infection) (5) Generalized weakness Goals to Promote Your Health * To prevent worsening of your condition and complications * To maintain your health at the optimal level Directions to Meet Your Goals Take your medications as prescribed Follow your dietary instruction Follow activity as directed Keep your appointments as scheduled Take your immunizations and boosters as scheduled If your symptoms worsen call your PCP, if no PCP go to Urgent Care Center or Emergency Room Smoking is Dangerous to Your Health. Avoid second hand smoke Call the 24-hour hour crisis hotline for domestic abuse at Eleno Franklin MD July 08, 2016 09:10
[2016-07-08 09:13] VITALS: PULSE 69
[2016-07-08] MEDS: INSULIN ASPART SUPPLEMENTAL SCALE SQ SCH ×2 (11:00→16:00)
[2016-07-08 12:39] VITALS: BP 198/84; PULSE 69; RESP 16; TEMP 97.2; O2SAT 98
[2016-07-08 12:54] VITALS: BP 186/78
[2016-07-08] MEDS ORDERED: AMLO5TAB2 PO (13:15)
[2016-07-08 13:21] LABS: BICARBONATE 33.1 MEQ/L (21.0-32.0)
[2016-07-08] MEDS ORDERED: POTA10CA PO (13:31)
[2016-07-08] MEDS ORDERED: POTASSIUM CHLORIDE 20 MEQ CONTROLLED RELEASE TAB PO ONE (13:45)
[2016-07-08] MEDS: LEVOFLOXACIN 500 MG TAB PO SCH (13:47)
[2016-07-08] MEDS ORDERED: amLODIPine BESYLATE 5 MG TAB PO SCH (14:00)
--- NOTE | 2016-07-08 14:43 | HHI.DS ---
cc: Ai Moore MD Discharge Summary Admission Date July 04, 2016 at 19:23 Discharge Date: July 08, 2016 Admitting Diagnosis sepsis, pneumonia, UTI (1) Sepsis ICD Code: A41.9 (2) PNA (pneumonia) ICD Code: J18.9 (3) UTI (urinary tract infection) ICD Code: N39.0 (4) Generalized weakness ICD Code: R53.1 (5) DM (diabetes mellitus) ICD Code: E11.9 Procedures none Brief History - From Admission This is a 76-year-old male with a PMH of HTN, Hyperlipidemia, CVA and DM who presented to the ER with complaints of generalized weakness x2 days. Reports fall 2 days ago due to weakness but no LOC or head trauma. Denies fever, chills , nausea, vomiting, chest pain or SOB. On arrival, BP 139/78, HR 97, O2 sat 96 % on RA, Temp 100.1. WBC 18.2. Chemistry at baseline. GFR 71. Lactic Acid 1.7. UA positive for UTI. CT Head with no acute findings, old right basal ganglia lacunar infarct. CXR with left base pneumonia. S/p Blood Cultures, Rocephin/Zithro in ER. CBC/BMP: 07/06/16 0821 07/08/16 1030 Significant Findings Laboratory Tests Test 07/06/16 07/08/16 08:21 10:30 Hemoglobin 12.4 GM/DL (13.0-17.0) Hematocrit 36.6 % (39.0-51.0) Mean Corpuscular Volume 79.8 FL (80.0-100.0) Platelet Count 133 TH/MM3 (150-450) Neutrophils (%) (Auto) 76.5 % (16.0-70.0) Monocytes (%) (Auto) 9.4 % (0.0-8.0) Neutrophils % (Manual) 73 % (16-70) Band Neutrophils % 7 % (0-6) Neutrophils # (Manual) 7.9 TH/MM3 (1.8-7.7) Myelocytes 2 % (0-0) Toxic Vacuolation PRESENT (NONE SEEN) Platelet Estimate LOW (NORMAL) Platelet Morphology Comment ENLARGED (NORMAL) Potassium Level 3.0 MEQ/L (3.5-5.1) Carbon Dioxide Level 33.1 MEQ/L (21.0-32.0) Random Glucose 174 MG/DL (74-106) Imaging Last Impressions Lumbar Spine X-Ray 07/04/16 0000 Signed Impressions: Service Date/Time: Monday, July 04, 2016 17:28 - CONCLUSION: Degenerative changes as above. No fracture or subluxation of the lumbar spine. Joe Cerna MD Head CT 07/04/16 0000 Signed Impressions: Service Date/Time: Monday, July 04, 2016 17:57 - CONCLUSION: No acute intracranial abnormality demonstrated. Old white matter changes and an old right basal ganglia lacunar infarct again seen. Joe Cerna MD Chest X-Ray 07/04/16 0000 Signed Impressions: Service Date/Time: Monday, July 04, 2016 18:08 - CONCLUSION: Left base pneumonia. Joe Cerna MD PE at Discharge General: No acute distress. Sitting up in a chair. Heart: Regular rate and rhythm. No murmur. Lungs: Clear to auscultation bilaterally. No wheezes, rales, or rhonchi. Breathing is nonlabored. Abdomen: Soft, nontender, nondistended. Extremities: No lower extremity edema. Psych: Alert and oriented. Hospital Course The patient was admitted for treatment of sepsis secondary to pneumonia, UTI. He was continued on IV antibiotics. Physical therapy was requested secondary to weakness. Patient improved clinically throughout the hospitalization. He was transitioned to oral antibiotics. Potassium was supplemented. Patient was felt to be stable for discharge home. He was advised to follow-up with his PCP and recheck serum potassium level as an outpatient. Pt Condition on Discharge: Stable Discharge Disposition: Discharge Home Discharge Time: > 30 minutes Discharge Instructions DIET: Follow Instructions for: Heart Healthy Diet, Diabetic Diet Activities you can perform: Regular-No Restrictions Follow up Referrals: PCP Follow-up - 1 Week New Orders: BASIC METABOLIC PROF - Next Day New Medications: Amlodipine (Amlodipine) 5 Mg Tab 5 MG PO DAILY Blood Pressure Management #30 Ref 0 TAB Potassium Chloride ER (Potassium Chloride ER) 10 Meq Cap 10 MEQ PO DAILY Electrolyte Replacement #30 Ref 0 CAP Levofloxacin (Levofloxacin) 500 Mg Tablet 500 MG PO Q24H Infection #5 TAB Continued Medications: Aspirin DR (Aspirin 81) 81 Mg Tabdr 81 MG PO DAILY Ref 0 TAB Atorvastatin (Atorvastatin) 10 Mg Tab 10 MG PO HS Cholesterol Management #30 Ref 0 TAB Brinzolamide-Brimonidine Opth Drops (Simbrinza Opth Drops) 1-0.2% Susp 1 DROP EACH EYE BID Intraocular Pressure #1 Ref 0 BOTTLE Carvedilol (Carvedilol) 25 Mg Tab 25 MG PO BID #60 Ref 0 TAB Cholecalciferol (Vitamin D3) 1,000 Unit Chew 1000 UNITS CHEW DAILY Nutritional Supplement #1 Ref 0 BOTTLE Glimepiride (Glimepiride) 2 Mg Tab 2 MG PO DAILY Take with breakfast or first main meal Blood Sugar Management #30 Ref 0 TAB Hydrochlorothiazide (Hydrochlorothiazide) 25 Mg Tab 25 MG PO DAILY #30 Ref 0 TAB Lisinopril (Lisinopril) 20 Mg Tab 20 MG PO DAILY #30 Ref 0 TAB Potassium Chloride ER (Klor-Con 10) 10 Meq Tab 10 MEQ PO DAILY Electrolyte Replacement #30 Ref 0 TAB Prednisolone Acetate Opth 1% (Pred Forte Opth 1%) 1% Susp 1 DROP LEFT EYE DAILY Inflammation #1 Ref 0 BOTTLE Timolol Opth Drops (Timolol Opth Drops) 0.5 % Soln 1 DROP EACH EYE BID Glaucoma #1 Ref 0 BOTTLE Eleno Franklin MD July 08, 2016 14:43
== END 2016-07-08 17:12 | disposition home or self-care (01) | DRG 871 ==
LOC: NEPE 16:26 → NEDA 19:23 → HOCB 22:33
PROVIDERS: ADMIT Family Medicine; ATTEND Family Medicine
DX: A41.9 Sepsis, unspecified organism (principal); J18.9 Pneumonia, unspecified organism; E11.9 Type 2 diabetes mellitus without complications; N39.0 Urinary tract infection, site not specified; I10 Essential (primary) hypertension; Z79.84 Long term (current) use of oral hypoglycemic drugs; E87.6 Hypokalemia; B96.1 Klebsiella pneumoniae [K. pneumoniae] as the cause of diseases classified elsewhere; E78.5 Hyperlipidemia, unspecified; Z86.73 Personal history of transient ischemic attack (TIA), and cerebral infarction without residual deficits; H40.9 Unspecified glaucoma
CPT/HCPCS: 70450; 71010; 72100; 80048; 80053; 81001; 82948; 83605; 85007; 85025; 85027; 85610; 85730; 87040; 87077; 87086; 87186; 90686; 90732; 96365; J0456; J0696; J1815; J7030; J7050; Q2038